=== PATIENT | female | born 1985 | race Two or more races ===

== ENCOUNTER 2020-03-26 14:34 | Observation (INO) | payer MEDICAID ==
[~2020-03-26] VITALS: Ht 177.8 cm; Wt 93.9 kg
[2020-03-26] MEDS ORDERED: TERBUTALINE SULFATE 1 MG/ML 1ML VIAL SC SCH (15:15)
== END 2020-03-26 16:35 | disposition home or self-care (01) | DRG 563 ==
LOC: LDRP 14:34
PROVIDERS: ADMIT Specialist; ATTEND Specialist
DX: O60.03 Preterm labor without delivery, third trimester (principal); Z3A.33 33 weeks gestation of pregnancy
CPT/HCPCS: 59025; 81002; G0378; J3105